=== PATIENT | male | born 1980 | race African-American/Black ===

== ENCOUNTER 2021-06-04 17:48 | Emergency (ER) | payer OTHER ==
[~2021-06-04] VITALS: Ht 177.8 cm; Wt 115.8 kg
[2021-06-04 18:05] VITALS: BP 152/89
--- NOTE | 2021-06-04 18:06 | NUR ---
TO ER BED 6
--- NOTE | 2021-06-04 18:17 | NUR ---
ZAYDA NINO AT PT BEDSIDE FOR FURTHER EVALUATION.
--- NOTE | 2021-06-04 18:20 | NUR ---
41 y/o M BIB self from home c/o R eyelid pain and swelling x 3 days. Patient reports pain upon palpating eyelid 6/10, pressure/intermittent, non-radiating pain. Pt states woke up 3 days ago with swelling; states intermittent "gunky discharge." Denies medications or OTC treatments prior to arrival. Bed locked in lowest position, side rails x 1. PMH/Sx/Meds: Denies NKDA
[2021-06-04] MEDS ORDERED: ERYT5OIN51 OP (18:27)
[2021-06-04 18:43] VITALS: BP 155/81
--- NOTE | 2021-06-04 18:43 | NUR ---
Patient discharged with v/s stable. Written and verbal after care instructions given and explained. Patient alert, oriented and verbalized understanding of instructions. Ambulatory with steady gait. All questions addressed prior to discharge. ID band removed. Patient advised to follow up with PMD. Rx of ERYTHROMYCIN given. Patient educated on indication of medication including possible reaction and side effects. Opportunity to ask questions provided and answered.
== END 2021-06-04 18:43 | disposition home or self-care (01) ==
LOC: MED 17:48
DX: H00.021 Hordeolum internum right upper eyelid (principal)
CPT/HCPCS: 99283